=== PATIENT | male | born 1950 | race Caucasian/White ===

== ENCOUNTER → 2017-07-10 | Outpatient (CLI) | payer MEDICARE, OTHER ==
[~2017-07-10] MED LIST: IBUPROFEN200 M2 PO; NORCO 5-325 TA1 EACH PO; PHENERGAN50 MG RC; ZOFRAN4 MG PO
== END ==
LOC: M.CT 12:33
DX: M13.811 Other specified arthritis, right shoulder (principal); M75.101 Unspecified rotator cuff tear or rupture of right shoulder, not specified as traumatic; M25.711 Osteophyte, right shoulder; M75.81 Other shoulder lesions, right shoulder